=== PATIENT | male | born 1950 | race Caucasian/White ===

== ENCOUNTER 2020-08-20 07:46 | Inpatient (IN) | payer OTHER, MEDICARE ==
[2020-08-20] MEDS ORDERED: SODIUM CHLORIDE 250 ML IV STA (09:04)
[2020-08-20 09:20] LABS: BASO % 0.2 % (0-2.0); EOS % 0.1 % (0-4.5); HEMATOCRIT 34.8 % (35.4-49); HEMOGLOBIN 10.9 GM/dL (11.7-16.9); MCH 29.7 pg (25.7-33.7); MCHC 31.3 g/dl (32.0-35.9); MEAN CELL VOLUME 94.9 fl (80-96); MEAN PLT VOLUME 10.3 fl (7.5-11.1); MONO % 0.4 % (3.8-10.2); NEUT % 91.3 % (42.8-82.8); PLATELET COUNT 224 K/MM3 (134-434); RBC 3.67 M/mm3 (4.00-5.60); RDW 20.5 % (11.9-15.9); WHITE BLOOD COUNT 12.6 K/mm3 (4.0-10.0)
[2020-08-20 09:29] LABS: EPI CELLS 6 /uL (0-25.1); HYALINE CASTS 3 /uL (0-3.1); URINE APPEARANCE CLEAR; URINE BACTERIA 7 /uL (0-1359); URINE BILIRUBIN 1+ (NEGATIVE); URINE COLOR DK YELLOW; URINE GLUCOSE (UA) NEGATIVE (NEGATIVE); URINE KETONE TRACE (NEGATIVE); URINE LEUK ESTERASE 1+ (NEGATIVE); URINE NITRITE NEGATIVE (NEGATIVE); URINE PROTEIN TRACE (NEGATIVE); URINE UROBILINOGEN 0.2 mg/dL (0.2-1.0); URINE WBC 114 /uL (0-25.8)
[2020-08-20 09:32] LABS: INR 2.29 (0.83-1.09)
[2020-08-20 09:47] LABS: CHLORIDE 107 mmol/L (98-107); POTASSIUM 5.2 mmol/L (3.5-5.1); SODIUM 138 mmol/L (136-145)
[2020-08-20 09:49] LABS: ANION GAP 10 MMOL/L (8-16); BLOOD UREA NITROGEN 43.8 mg/dL (7-18); CALCIUM 7.3 mg/dL (8.5-10.1); CO2 21 mmol/L (21-32); GLUCOSE,RANDOM 90 mg/dL (74-106)
[2020-08-20 09:52] LABS: SGOT/AST 39 U/L (15-37); SGPT/ALT 23 U/L (13-61)
[2020-08-20 09:54] LABS: CREATININE 3.8 mg/dL (0.55-1.3)
[2020-08-20 09:55] LABS: ALK PHOS 147 U/L (45-117); BILIRUBIN,TOTAL 0.5 mg/dL (0.2-1)
[2020-08-20 09:56] LABS: URINE RBC 173.2 /uL (0-23.9)
[2020-08-20 10:24] LABS: ANISOCYTOSIS 1+; MACROCYTOSIS 0; PLATELET ESTIMATE NORMAL
[2020-08-20] MEDS ORDERED: VANCOMYCIN HCL 1,250 MG in DEXTROSE 5%-WATER - 250 ML IVPB ONE (10:45)
[2020-08-20] MEDS ORDERED: MORPHINE SULFATE 2 MG/ML VIAL IVPUSH PRN (11:09)
[2020-08-20] MEDS: GENTAMICIN INJECTION 100 MG in SODIUM CHLORIDE 97.5 ML IVPB ONE ×2 (11:39→18:31)
[2020-08-20] MEDS ORDERED: ALBUMIN HUMAN 25% 100 ML VIAL IVPB ONE (13:08)
[2020-08-20] MEDS ORDERED: SODIUM CHLORIDE 250 ML IV PRN (13:37)
[2020-08-20] MEDS ORDERED: PANTOPRAZOLE 20 MG TABLET PO ONE (13:58)
[2020-08-20] MEDS: PANTOPRAZOLE 20 MG TABLET PO SCH (14:20)
[2020-08-20] MEDS: CEFTRIAXONE 1 GM in DEXTROSE 5%-WATER - 50 ML IVPB SCH (14:20)
[2020-08-20] MEDS: MIDODRINE HCL 2.5 MG TABLET PO SCH ×2 (17:27→17:29)
[2020-08-20 18:10] LABS: POTASSIUM 4.4 mmol/L (3.5-5.1)
[2020-08-20 18:12] LABS: BLOOD UREA NITROGEN 45.8 mg/dL (7-18)
[2020-08-20 18:16] LABS: CREATININE 3.8 mg/dL (0.55-1.3)
[2020-08-20 18:23] LABS: CALCIUM 6.8 mg/dL (8.5-10.1)
[2020-08-20] MEDS ORDERED: MIRTAZAPINE 15 MG TABLET (FP) ONE (23:18)
[2020-08-20] MEDS: MELATONIN 1 MG TABLET PO SCH (23:47)
[2020-08-20] MEDS: MIRTAZAPINE 30 MG TABLET PO SCH (23:47)
[2020-08-21] MEDS: NYSTATIN 100,000 UNIT/GM TOPICAL CREAM 15 GM TUBE TP SCH ×3 (00:05→21:54)
[2020-08-21] MEDS ORDERED: PT OWN MED DRAWER 7, Y5N ONE ×2 (06:30→19:54)
[2020-08-21] MEDS ORDERED: MIDODRINE HCL 2.5 MG TABLET PO ONE (06:44)
[2020-08-21 07:22] LABS: POTASSIUM 4.8 mmol/L (3.5-5.1)
[2020-08-21 07:26] LABS: CALCIUM 7.3 mg/dL (8.5-10.1)
[2020-08-21 07:27] LABS: ALBUMIN 1.4 g/dl (3.4-5.0); BLOOD UREA NITROGEN 51.2 mg/dL (7-18); MAGNESIUM 1.4 mg/dL (1.8-2.4)
[2020-08-21 07:30] LABS: PHOSPHOROUS 3.8 mg/dL (2.5-4.9)
[2020-08-21] MEDS: ALBUMIN HUMAN 25% 12.5 GM/50 ML VIAL IVPB SCH ×4 (07:30→09:15)
[2020-08-21 07:31] LABS: BILIRUBIN,TOTAL 0.7 mg/dL (0.2-1); TOT PROT 4.3 g/dl (6.4-8.2)
[2020-08-21 07:47] LABS: BASO % 0.2 % (0-2.0); EOS % 0.1 % (0-4.5); HEMATOCRIT 37.2 % (35.4-49); HEMOGLOBIN 11.3 GM/dL (11.7-16.9); LYMPH % 18.9 % (8-40); MCH 28.8 pg (25.7-33.7); MCHC 30.4 g/dl (32.0-35.9); MEAN CELL VOLUME 94.5 fl (80-96); MEAN PLT VOLUME 9.5 fl (7.5-11.1); MONO % 2.1 % (3.8-10.2); NEUT % 78.7 % (42.8-82.8); PLATELET COUNT 155 K/MM3 (134-434); RBC 3.93 M/mm3 (4.00-5.60); RDW 21.1 % (11.9-15.9); WHITE BLOOD COUNT 12.2 K/mm3 (4.0-10.0)
[2020-08-21] MEDS ORDERED: MIDODRINE HCL 5 MG TABLET PO ONE (07:51)
[2020-08-21] MEDS ORDERED: MAGNESIUM OXIDE 400 MG TABLET (FP) PO ONE (08:15)
[2020-08-21 08:43] LABS: IRON SERUM 65 ug/dL (50-175); TOTAL IRON BINDING CAPACITY 96 ug/dL (250-450)
[2020-08-21 09:02] LABS: RETICULOCYTES 2.75 % (0.5-1.5)
[2020-08-21] MEDS ORDERED: PNEUMOC 13-VAL CONJ-DIP CRM/PF 0.5 ML DISP.SYRIN IM ONE (10:00)
[2020-08-21] MEDS ORDERED: MAGNESIUM 2GM/50ML STERILE WATER IVPB IVPB ONE (10:30)
[2020-08-21] MEDS ORDERED: VANCOMYCIN 1 GM in D5W (PRE-DOCKED) 1,000 MG/250 ML IVPB ONE (10:30)
[2020-08-21] MEDS ORDERED: cefTRIAXone SODIUM 1 GM VIAL ONE (10:39)
[2020-08-21] MEDS ORDERED: DEXTROSE 5%-WATER - 50 ML IVPB ONE (10:40)
[2020-08-21] MEDS: CEFTRIAXONE 1 GM in DEXTROSE 5%-WATER - 50 ML IVPB SCH (10:52)
[2020-08-21] MEDS: PANTOPRAZOLE 20 MG TABLET PO SCH (10:52)
[2020-08-21 15:16] LABS: BF WBC & OTHER NUCLEATED CELLS 6640 /mm3
[2020-08-21 16:35] LABS: BODY FLUID HISTIOCYTES 4 %
[2020-08-21] MEDS: MIDODRINE HCL 2.5 MG TABLET PO SCH ×2 (17:00→18:35)
[2020-08-21] MEDS ORDERED: FUROSEMIDE 40 MG/4 ML INJECTABLE VIAL IVPUSH ONE (17:35)
[2020-08-21] MEDS: MIRTAZAPINE 30 MG TABLET PO SCH (21:53)
[2020-08-21] MEDS: MELATONIN 1 MG TABLET PO SCH (21:53)
[2020-08-22 06:46] LABS: HEMOGLOBIN 9.7 GM/dL (11.7-16.9); MCH 29.1 pg (25.7-33.7); MCHC 31.4 g/dl (32.0-35.9); MEAN CELL VOLUME 92.7 fl (80-96); MEAN PLT VOLUME 9.3 fl (7.5-11.1); PLATELET COUNT 110 K/MM3 (134-434); RBC 3.35 M/mm3 (4.00-5.60); RDW 20.2 % (11.9-15.9); WHITE BLOOD COUNT 8.7 K/mm3 (4.0-10.0)
[2020-08-22 07:06] LABS: POTASSIUM 3.3 mmol/L (3.5-5.1)
[2020-08-22 07:08] LABS: ALBUMIN 1.7 g/dl (3.4-5.0); BLOOD UREA NITROGEN 30.1 mg/dL (7-18); CALCIUM 7.2 mg/dL (8.5-10.1); MAGNESIUM 1.7 mg/dL (1.8-2.4)
[2020-08-22 07:12] LABS: CREATININE 2.5 mg/dL (0.55-1.3); PHOSPHOROUS 2.3 mg/dL (2.5-4.9)
[2020-08-22 07:13] LABS: BILIRUBIN,TOTAL 1.1 mg/dL (0.2-1)
[2020-08-22] MEDS ORDERED: POTASSIUM CHLORIDE TABS 10 MEQ TABLET.ER (FP) PO ONE (07:25)
[2020-08-22] MEDS ORDERED: DEXTROSE 50%-WATER - 25 GM/50 ML VIAL IVPUSH ONE (07:43)
[2020-08-22] MEDS ORDERED: MAGNESIUM SULF 50% (8.12 MEQ/2 ML-1 GM VIAL) IVPB ONE (07:45)
[2020-08-22] MEDS ORDERED: DEXTROSE 50%-WATER 25 GM/50 ML DISP.SYRIN ONE (07:51)
[2020-08-22] MEDS ORDERED: cefTRIAXone SODIUM 1 GM VIAL ONE (10:00)
[2020-08-22] MEDS ORDERED: DEXTROSE 5%-WATER - 50 ML IVPB ONE (10:00)
[2020-08-22] MEDS: CEFTRIAXONE 1 GM in DEXTROSE 5%-WATER - 50 ML IVPB SCH (10:29)
[2020-08-22] MEDS: NYSTATIN 100,000 UNIT/GM TOPICAL CREAM 15 GM TUBE TP SCH ×2 (10:32→22:20)
[2020-08-22] MEDS: MIDODRINE HCL 2.5 MG TABLET PO SCH ×4 (11:02→18:03)
[2020-08-22] MEDS: PANTOPRAZOLE 20 MG TABLET PO SCH (11:02)
[2020-08-22] MEDS ORDERED: LACTULOSE 20 GM/30 ML UDC (FOR ORAL USE ONLY) PO PRN (15:41)
[2020-08-22 17:07] LABS: BODY FLUID ALBUMIN 0.2 g/dL (Not Estab.)
[2020-08-22] MEDS: ALBUMIN HUMAN 25% 12.5 GM/50 ML VIAL IVPB SCH ×4 (19:00→21:00)
[2020-08-22] MEDS ORDERED: PT OWN MED DRAWER 7, Y5N ONE (19:38)
[2020-08-22] MEDS ORDERED: SODIUM CHLORIDE 250 ML IV PRN (20:17)
[2020-08-22] MEDS: MELATONIN 1 MG TABLET PO SCH (22:20)
[2020-08-22] MEDS: MIRTAZAPINE 30 MG TABLET PO SCH (22:20)
[2020-08-23 07:34] LABS: HEMATOCRIT 24.3 % (35.4-49); HEMOGLOBIN 7.8 GM/dL (11.7-16.9); MCH 29.6 pg (25.7-33.7); MCHC 31.9 g/dl (32.0-35.9); MEAN CELL VOLUME 92.6 fl (80-96); MEAN PLT VOLUME 8.7 fl (7.5-11.1); PLATELET COUNT 91 K/MM3 (134-434); RBC 2.63 M/mm3 (4.00-5.60); RDW 20.1 % (11.9-15.9); WHITE BLOOD COUNT 5.8 K/mm3 (4.0-10.0)
[2020-08-23 07:38] LABS: INR 1.89 (0.83-1.09); PROTHROMBIN TIME (PATIENT) 22.5 SEC (9.7-13.0)
[2020-08-23 07:41] LABS: ACTIVATED PTT 50.2 SECONDS (25.2-36.5)
[2020-08-23 07:48] LABS: POTASSIUM 3.5 mmol/L (3.5-5.1)
[2020-08-23 07:57] LABS: ALBUMIN 1.9 g/dl (3.4-5.0); CALCIUM 7.3 mg/dL (8.5-10.1)
[2020-08-23 07:58] LABS: BLOOD UREA NITROGEN 20.3 mg/dL (7-18)
[2020-08-23 08:02] LABS: CREATININE 2.1 mg/dL (0.55-1.3); PHOSPHOROUS 1.8 mg/dL (2.5-4.9)
[2020-08-23 08:03] LABS: BILIRUBIN,TOTAL 1.1 mg/dL (0.2-1)
[2020-08-23 08:05] LABS: TOT PROT 3.8 g/dl (6.4-8.2)
[2020-08-23] MEDS ORDERED: PT OWN MED DRAWER 7, Y5N ONE ×3 (09:33→17:01)
[2020-08-23] MEDS ORDERED: cefTRIAXone SODIUM 1 GM VIAL ONE (09:33)
[2020-08-23] MEDS ORDERED: DEXTROSE 5%-WATER - 50 ML IVPB ONE (09:33)
[2020-08-23] MEDS: MIDODRINE HCL 2.5 MG TABLET PO SCH ×3 (09:37→17:03)
[2020-08-23] MEDS: PANTOPRAZOLE 20 MG TABLET PO SCH (09:37)
[2020-08-23] MEDS: CEFTRIAXONE 1 GM in DEXTROSE 5%-WATER - 50 ML IVPB SCH (09:37)
[2020-08-23] MEDS ORDERED: POTASSIUM PHOSPHATE 30 MM in DEXTROSE 5%-WATER - 500 ML IVPB ONE (10:00)
[2020-08-23] MEDS: metoPROLOL SUCCINATE 25 MG TAB.SR.24H (FP) PO SCH (10:45)
[2020-08-23] MEDS: NYSTATIN 100,000 UNIT/GM TOPICAL CREAM 15 GM TUBE TP SCH ×2 (10:58→22:29)
[2020-08-23] MEDS: LACTULOSE 20 GM/30 ML UDC (FOR ORAL USE ONLY) PO SCH ×2 (14:19→22:28)
[2020-08-23] MEDS: AMINO ACIDS/PROTEIN HYDROLYS 30 ML LIQUID.PKT PO SCH (17:03)
[2020-08-23] MEDS: MIRTAZAPINE 30 MG TABLET PO SCH (22:29)
[2020-08-23] MEDS: MELATONIN 1 MG TABLET PO SCH (22:29)
[2020-08-24] MEDS: LACTULOSE 20 GM/30 ML UDC (FOR ORAL USE ONLY) PO SCH ×3 (05:45→21:30)
[2020-08-24] MEDS ORDERED: PT OWN MED DRAWER 7, Y5N ONE ×4 (08:42→21:19)
[2020-08-24] MEDS ORDERED: DEXTROSE 5%-WATER - 50 ML IVPB ONE (08:42)
[2020-08-24] MEDS ORDERED: cefTRIAXone SODIUM 1 GM VIAL ONE (08:42)
[2020-08-24] MEDS: AMINO ACIDS/PROTEIN HYDROLYS 30 ML LIQUID.PKT PO SCH ×2 (08:52→18:45)
[2020-08-24] MEDS: BUPRENORPHINE/NALOXONE 2 MG/0.5 MG FILM PACKET SL SCH (10:03)
[2020-08-24] MEDS: MIDODRINE HCL 2.5 MG TABLET PO SCH ×3 (10:03→18:45)
[2020-08-24] MEDS: metoPROLOL SUCCINATE 25 MG TAB.SR.24H (FP) PO SCH (10:03)
[2020-08-24] MEDS: PANTOPRAZOLE 20 MG TABLET PO SCH (10:03)
[2020-08-24] MEDS: CEFTRIAXONE 1 GM in DEXTROSE 5%-WATER - 50 ML IVPB SCH (10:03)
[2020-08-24] MEDS: NYSTATIN 100,000 UNIT/GM TOPICAL CREAM 15 GM TUBE TP SCH ×2 (10:42→21:30)
[2020-08-24] MEDS: RIFAXIMIN 550 MG TABLET (UD) PO SCH ×2 (10:52→21:30)
[2020-08-24 11:34] LABS: HEMOGLOBIN 9.3 GM/dL (11.7-16.9); MCH 29.7 pg (25.7-33.7); MCHC 30.9 g/dl (32.0-35.9); MEAN PLT VOLUME 9.5 fl (7.5-11.1); PLATELET COUNT 105 K/MM3 (134-434); RBC 3.13 M/mm3 (4.00-5.60); RDW 19.3 % (11.9-15.9); WHITE BLOOD COUNT 11.9 K/mm3 (4.0-10.0)
[2020-08-24 12:10] LABS: POTASSIUM 4.4 mmol/L (3.5-5.1)
[2020-08-24 12:14] LABS: ALBUMIN 1.8 g/dl (3.4-5.0); BLOOD UREA NITROGEN 33.5 mg/dL (7-18)
[2020-08-24 12:17] LABS: CREATININE 3.3 mg/dL (0.55-1.3); PHOSPHOROUS 4.1 mg/dL (2.5-4.9)
[2020-08-24 12:18] LABS: BILIRUBIN,TOTAL 0.7 mg/dL (0.2-1)
[2020-08-24] MEDS ORDERED: SODIUM CHLORIDE 250 ML IV PRN (15:29)
[2020-08-24] MEDS: MIRTAZAPINE 30 MG TABLET PO SCH (21:30)
[2020-08-24] MEDS: MELATONIN 1 MG TABLET PO SCH (21:30)
[2020-08-24] MEDS ORDERED: CIPROFLOXACIN 250 MG TABLET (RESTRICTED TO ID) PO SCH (22:00)
[2020-08-24] MEDS: MESALAMINE 400 MG PO SCH (23:58)
[2020-08-25] MEDS: LACTULOSE 20 GM/30 ML UDC (FOR ORAL USE ONLY) PO SCH ×3 (05:33→21:29)
[2020-08-25] MEDS: MESALAMINE 400 MG PO SCH ×3 (05:33→21:30)
[2020-08-25] MEDS: NYSTATIN 100,000 UNIT/GM TOPICAL CREAM 15 GM TUBE TP SCH ×2 (10:00→22:35)
[2020-08-25 11:15] LABS: HEMATOCRIT 32.4 % (35.4-49); MCH 29.6 pg (25.7-33.7); MEAN CELL VOLUME 95.6 fl (80-96); MEAN PLT VOLUME 9.2 fl (7.5-11.1); PLATELET COUNT 116 K/MM3 (134-434); RBC 3.38 M/mm3 (4.00-5.60); RDW 19.3 % (11.9-15.9); WHITE BLOOD COUNT 12.2 K/mm3 (4.0-10.0)
[2020-08-25 11:24] LABS: POTASSIUM 3.6 mmol/L (3.5-5.1)
[2020-08-25 11:26] LABS: BLOOD UREA NITROGEN 42.1 mg/dL (7-18)
[2020-08-25 11:29] LABS: CREATININE 3.4 mg/dL (0.55-1.3)
[2020-08-25 11:32] LABS: CALCIUM 6.7 mg/dL (8.5-10.1)
[2020-08-25] MEDS ORDERED: POTASSIUM CHLORIDE TABS 10 MEQ TABLET.ER (FP) PO ONE ×3 (11:32→17:15)
[2020-08-25] MEDS ORDERED: CALCIUM GLUCONATE 10% - 1,000 MG/10 ML VIAL IVPB ONE (12:45)
[2020-08-25] MEDS: ALBUMIN HUMAN 25% 12.5 GM/50 ML VIAL IVPB SCH ×4 (13:00→14:30)
[2020-08-25] MEDS: MIDODRINE HCL 2.5 MG TABLET PO SCH ×3 (16:26→17:24)
[2020-08-25] MEDS: AMINO ACIDS/PROTEIN HYDROLYS 30 ML LIQUID.PKT PO SCH ×2 (16:26→16:37)
[2020-08-25] MEDS: PANTOPRAZOLE 20 MG TABLET PO SCH (16:31)
[2020-08-25] MEDS: RIFAXIMIN 550 MG TABLET (UD) PO SCH ×2 (16:32→21:29)
[2020-08-25] MEDS: BUPRENORPHINE/NALOXONE 2 MG/0.5 MG FILM PACKET SL SCH (16:32)
[2020-08-25] MEDS: metoPROLOL SUCCINATE 25 MG TAB.SR.24H (FP) PO SCH (16:36)
[2020-08-25 18:07] LABS: HEP B CORE AB, TOT Positive (Negative)
[2020-08-25] MEDS ORDERED: PT OWN MED DRAWER 7, Y5N ONE ×2 (21:25→22:01)
[2020-08-25] MEDS: MELATONIN 1 MG TABLET PO SCH (21:29)
[2020-08-25] MEDS: MIRTAZAPINE 30 MG TABLET PO SCH (21:30)
[2020-08-26] MEDS: LACTULOSE 20 GM/30 ML UDC (FOR ORAL USE ONLY) PO SCH ×3 (06:46→22:08)
[2020-08-26] MEDS: MESALAMINE 400 MG PO SCH ×3 (06:46→22:09)
[2020-08-26] MEDS ORDERED: PT OWN MED DRAWER 7, Y5N ONE ×6 (06:53→20:50)
[2020-08-26 07:13] LABS: POTASSIUM 3.5 mmol/L (3.5-5.1)
[2020-08-26 07:19] LABS: BLOOD UREA NITROGEN 28.4 mg/dL (7-18); MAGNESIUM 1.6 mg/dL (1.8-2.4)
[2020-08-26 07:23] LABS: CREATININE 2.5 mg/dL (0.55-1.3); PHOSPHOROUS 3.3 mg/dL (2.5-4.9)
[2020-08-26 07:27] LABS: HEMATOCRIT 24.3 % (35.4-49); HEMOGLOBIN 7.7 GM/dL (11.7-16.9); MCH 29.9 pg (25.7-33.7); MCHC 31.9 g/dl (32.0-35.9); MEAN CELL VOLUME 93.8 fl (80-96); MEAN PLT VOLUME 8.8 fl (7.5-11.1); PLATELET COUNT 94 K/MM3 (134-434); RBC 2.58 M/mm3 (4.00-5.60); RDW 18.5 % (11.9-15.9); WHITE BLOOD COUNT 8.7 K/mm3 (4.0-10.0)
[2020-08-26 07:36] LABS: CALCIUM 6.6 mg/dL (8.5-10.1)
[2020-08-26] MEDS ORDERED: CALCIUM GLUCONATE 10% - 1,000 MG/10 ML VIAL IVPB ONE (08:30)
[2020-08-26] MEDS ORDERED: MAGNESIUM SULF 50% (8.12 MEQ/2 ML-1 GM VIAL) IVPB ONE ×2 (08:30→10:15)
[2020-08-26] MEDS ORDERED: SODIUM CHLORIDE 250 ML IV PRN (09:34)
[2020-08-26] MEDS: BUPRENORPHINE/NALOXONE 2 MG/0.5 MG FILM PACKET SL SCH (09:55)
[2020-08-26] MEDS: metoPROLOL SUCCINATE 25 MG TAB.SR.24H (FP) PO SCH (09:56)
[2020-08-26] MEDS: RIFAXIMIN 550 MG TABLET (UD) PO SCH ×2 (09:56→22:10)
[2020-08-26] MEDS: PANTOPRAZOLE 20 MG TABLET PO SCH (09:56)
[2020-08-26] MEDS: AMINO ACIDS/PROTEIN HYDROLYS 30 ML LIQUID.PKT PO SCH ×2 (09:57→17:13)
[2020-08-26] MEDS: NYSTATIN 100,000 UNIT/GM TOPICAL CREAM 15 GM TUBE TP SCH ×2 (09:57→22:09)
[2020-08-26] MEDS: MIDODRINE HCL 2.5 MG TABLET PO SCH ×3 (10:02→17:14)
[2020-08-26] MEDS ORDERED: VANCOMYCIN 1 GM in D5W (PRE-DOCKED) 1,000 MG/250 ML IVPB ONE (10:58)
[2020-08-26] MEDS ORDERED: POTASSIUM CHLORIDE ORAL LIQUID 20 MEQ/15 ML PO ONE (11:49)
[2020-08-26] MEDS ORDERED: MAGNESIUM OXIDE 400 MG TABLET (FP) PO ONE (12:00)
[2020-08-26] MEDS ORDERED: FUROSEMIDE 40 MG/4 ML INJECTABLE VIAL IVPUSH ONE (12:00)
[2020-08-26 13:13] VITALS: BMI 23.9
[2020-08-26] MEDS: MELATONIN 1 MG TABLET PO SCH (22:08)
[2020-08-26] MEDS: HEPARIN NA (PORCINE) 5,000 UNITS/ML 1ML VIAL SQ SCH (22:08)
[2020-08-26] MEDS: MIRTAZAPINE 30 MG TABLET PO SCH (22:09)
[2020-08-27] MEDS ORDERED: PT OWN MED DRAWER 7, Y5N ONE ×3 (06:14→14:29)
[2020-08-27] MEDS: HEPARIN NA (PORCINE) 5,000 UNITS/ML 1ML VIAL SQ SCH ×2 (06:39→13:45)
[2020-08-27] MEDS: MESALAMINE 400 MG PO SCH ×2 (06:39→14:32)
[2020-08-27] MEDS: LACTULOSE 20 GM/30 ML UDC (FOR ORAL USE ONLY) PO SCH ×2 (06:39→13:52)
[2020-08-27] MEDS ORDERED: EPOETIN ALFA-EPBX 10,000 UNIT/ML VIAL IVPUSH ONE (10:00)
[2020-08-27] MEDS ORDERED: COLLAGENASE CLOSTRIDIUM HIST. 30 GRAMS TUBE TP SCH (10:00)
[2020-08-27] MEDS: AMINO ACIDS/PROTEIN HYDROLYS 30 ML LIQUID.PKT PO SCH (10:32)
[2020-08-27] MEDS: ALBUMIN HUMAN 25% 12.5 GM/50 ML VIAL IVPB SCH ×4 (10:45→12:15)
[2020-08-27] MEDS: RIFAXIMIN 550 MG TABLET (UD) PO SCH (11:00)
[2020-08-27 11:11] LABS: HEMATOCRIT 26.2 % (35.4-49); MCH 28.6 pg (25.7-33.7); MCHC 30.5 g/dl (32.0-35.9); MEAN CELL VOLUME 93.8 fl (80-96); MEAN PLT VOLUME 8.8 fl (7.5-11.1); PLATELET COUNT 120 K/MM3 (134-434); RBC 2.79 M/mm3 (4.00-5.60); RDW 18.5 % (11.9-15.9); WHITE BLOOD COUNT 12.6 K/mm3 (4.0-10.0)
[2020-08-27 11:33] LABS: POTASSIUM 3.6 mmol/L (3.5-5.1)
[2020-08-27 11:35] LABS: BLOOD UREA NITROGEN 40.2 mg/dL (7-18)
[2020-08-27 11:38] LABS: CREATININE 3.2 mg/dL (0.55-1.3)
[2020-08-27 11:45] LABS: CALCIUM 6.6 mg/dL (8.5-10.1)
[2020-08-27] MEDS ORDERED: CALCIUM GLUCONATE 10% - 1,000 MG/10 ML VIAL IVPB ONE (11:49)
[2020-08-27] MEDS ORDERED: CALCIUM 500MG/VIT-D 200 UNITS COMBO TABLET (FP) PO SCH (12:15)
[2020-08-27] MEDS: MIDODRINE HCL 5 MG, MIDODRINE HCL 2.5 MG PO SCH ×2 (13:12→13:42)
[2020-08-27] MEDS: PANTOPRAZOLE 20 MG TABLET PO SCH (13:44)
[2020-08-27] MEDS: metoPROLOL SUCCINATE 25 MG TAB.SR.24H (FP) PO SCH (13:44)
[2020-08-27] MEDS: BUPRENORPHINE/NALOXONE 2 MG/0.5 MG FILM PACKET SL SCH (13:44)
[2020-08-27] MEDS: NYSTATIN 100,000 UNIT/GM TOPICAL CREAM 15 GM TUBE TP SCH (13:53)
[2020-08-27 14:34] VITALS: BP 123/71; PULSE 106; TEMP 98.2
== END 2020-08-27 18:32 | DRG 441 ==
LOC: JER 07:46 → JERBED 11:05 → J4S 08-21 00:55
PROVIDERS: ATTEND Internal Medicine
PROC: 0W9G3ZZ Drainage of Peritoneal Cavity, Percutaneous Approach (ICD-10-PCS; principal; 2020-08-21)
DX: K72.00 Acute and subacute hepatic failure without coma (principal); L89.153 Pressure ulcer of sacral region, stage 3; K65.2 Spontaneous bacterial peritonitis; N18.6 End stage renal disease; L03.115 Cellulitis of right lower limb; E46 Unspecified protein-calorie malnutrition; R64 Cachexia; I50.22 Chronic systolic (congestive) heart failure; B19.10 Unspecified viral hepatitis B without hepatic coma; R78.81 Bacteremia; B18.1 Chronic viral hepatitis B without delta-agent; K70.31 Alcoholic cirrhosis of liver with ascites; I95.9 Hypotension, unspecified; A49.01 Methicillin susceptible Staphylococcus aureus infection, unspecified site; Z68.24 Body mass index [BMI] 24.0-24.9, adult; B18.2 Chronic viral hepatitis C; I48.91 Unspecified atrial fibrillation; Z79.01 Long term (current) use of anticoagulants; E87.6 Hypokalemia; Z72.89 Other problems related to lifestyle; E88.09 Other disorders of plasma-protein metabolism, not elsewhere classified
CPT/HCPCS: 36415; 49083; 70450-TC; 71045-TC-FY; 72170-TC-FY; 73523-TC-FY; 73552-TC-RT-FY; 73700-TC-RT; 74176-TC; 76098-TC-FY; 76942-TC; 80048; 80053; 81003; 82042; 82140; 82150; 82465; 82550; 82728; 82945; 82962; 83540; 83550; 83615; 83735; 83986; 84100; 84157; 84443; 84478; 84484; 85025; 85027; 85045; 85610; 85730; 86704; 86706; 86707; 86708; 86709; 86803; 86850; 86900; 86901; 87040; 87070; 87075; 87086; 87102; 87116; 87186; 87205; 87206; 87210; 87340; 87899; 88108; 88305-TC; 90670; 93005; 93010; 93970-TC; 97116-GP; 97161-GP; 99285-25; C9803; J1644; P9047; Q5106; U0003